=== PATIENT | male | born 1980 | race Native Hawaiian/Other Pacific Islander ===

== ENCOUNTER 2018-03-15 22:41 | Inpatient (IN) | payer MEDICAID ==
[~2018-03-15] VITALS: Ht 175.3 cm; Wt 111.8 kg
[~2018-03-15 22:41] MED LIST: ASPI-378 PO; ATOR20TA PO; CARV6.25 PO; CLOP75TA28 PO; ENAL5TAB85 PO; ESOM40CA39 PO; FURO40TA PO; LEVO750T2 PO; POTA20TA53 PO; SACC250C PO; SPIR25TA88 PO
[2018-03-16] VITALS (21 sets, daily range): BP systolic 121–147; BP diastolic 64–102
[2018-03-16 00:07] LABS: Basophils # (auto) 0.3 uL; Basophils % (auto) 2.7 % (0.0-2.0); Eosinophils # (auto) 0.1 uL; Eosinophils % (auto) 0.5 % (0.0-7.0); Hematocrit 49.8 % (41.0-53.0); Hemoglobin 16.2 g/dL (13.5-17.5); Lymphocytes # (auto) 2.2 uL; Lymphocytes % (auto) 19.4 % (10.0-50.0); Mean Corpuscular Hemoglobin 29.1 pg (28.0-32.0); Mean Corpuscular Hgb Conc. 32.6 g/dL (32.0-36.0); Mean Corpuscular Volume 89.3 fL (80.0-100.0); Monocytes # (auto) 0.6 uL; Monocytes % (auto) 5.1 % (0.0-12.0); Neutrophils # (auto) 8.2 uL; Neutrophils % (auto) 72.3 % (37.0-80.0); Nucleated Red Blood Cells % 0.1 %; Platelet Count (auto) 401 10^3/uL (140-450); Red Blood Cells 5.58 10^6/uL (4.5-5.90); Red Cell Distribution Width 17.2 % (11.8-14.3); White Blood Cell 11.4 10^3/uL (4.4-10.8)
[2018-03-16 00:29] LABS: Albumin 2.6 g/dL (3.4-5.0); BUN/Creatinine Ratio 9.3; Calcium 8.4 mg/dL (8.5-10.1); Potassium 4.8 mmol/L (3.5-5.1)
[2018-03-16 00:45] LABS: Bilirubin, Total 1.1 mg/dL (0.2-1.0); Total Protein 7.7 g/dL (6.4-8.2)
[2018-03-16] MEDS ORDERED: ENOXAPARIN SOD 100 MG/1 ML SYRINGE SC ONE (01:15)
[2018-03-16] MEDS ORDERED: ASPirin 81 mg TAB PO ONE (01:15)
[2018-03-16] MEDS ORDERED: NITROGLYCERIN 0.4MG/HR TOPICAL PATCH TD ONE (01:15)
[2018-03-16] MEDS ORDERED: ENALAPRILAT 1.25 MG/ML-1ML VIAL IV ONE (01:15)
[2018-03-16] MEDS ORDERED: FUROSEMIDE 40 MG/4 ML VIAL IV ONE ×2 (01:45)
[2018-03-16] MEDS ORDERED: NITROGLYCERIN 50MG/250ML 250 ML IV ONE ×2 (01:45)
[2018-03-16 01:49] LABS: INR 1.26 (0.9-1.15); Partial Thromboplastin Time 29.7 sec (22.64-33.71); Prothrombin Time 13.8 sec (9.37-12.3)
[2018-03-16 02:26] LABS: Urine Bacteria NONE SEEN /hpf (None Seen); Urine Blood Negative /uL (Negative); Urine Hyaline Cast FEW /lpf (0 - 2); Urine Mucus FEW (None Seen); Urine Specific Gravity 1.006 (1.001-1.035); Urine WBC 1 /hpf (0 - 3)
[2018-03-16] MEDS ORDERED: HYDROcodone-ACET 5/325MG TAB PO PRN (05:30)
[2018-03-16] MEDS ORDERED: ONDANSETRON HCL 4 MG/2 ML VIAL IV PRN (05:30)
[2018-03-16] MEDS ORDERED: ACETAMINOPHEN 325 MG TAB PO PRN (05:30)
[2018-03-16] MEDS ORDERED: NITROGLYCERIN 0.4 MG SL TAB SL PRN (05:30)
[2018-03-16] MEDS ORDERED: ATORVASTATIN 20 MG TAB PO ONE (05:30)
[2018-03-16] MEDS ORDERED: MORPHINE SULFATE 4 MG/ML SYR/VIAL IV PRN (05:30)
[2018-03-16] MEDS ORDERED: TEMAZEPAM 15 MG CAP PO PRN (05:30)
[2018-03-16] MEDS: FUROSEMIDE 40 MG/4 ML VIAL IV SCH ×2 (06:00→17:33)
[2018-03-16] MEDS ORDERED: ATORVASTATIN 20 MG TAB ONE (06:28)
[2018-03-16] MEDS ORDERED: cloNIDine HCL 0.1 MG TAB PO PRN (07:30)
[2018-03-16] MEDS ORDERED: CLOPIDOGREL BISULFATE 75 MG TAB PO SCH (10:00)
[2018-03-16] MEDS ORDERED: ASPirin 81 mg TAB PO SCH (10:00)
[2018-03-16] MEDS: FAMOTIDINE 20 MG TAB PO SCH ×2 (10:32→22:00)
[2018-03-16] MEDS: ENALAPRIL MALEATE 2.5 MG TAB PO SCH (10:32)
[2018-03-16] MEDS: CARVEDILOL 3.125 MG TAB PO SCH ×2 (10:33→22:00)
[2018-03-16] MEDS: ENOXAPARIN SOD 100 MG/1 ML SYRINGE SC SCH ×2 (10:34→22:00)
[2018-03-16] MEDS: ATORVASTATIN 20 MG TAB PO SCH (22:00)
[2018-03-16] MEDS ORDERED: ENOXAPARIN SOD 120 MG/0.8 ML SYRINGE SC ONE (22:22)
[2018-03-17] VITALS (14 sets, daily range): BP systolic 99–146; BP diastolic 63–101
[2018-03-17 03:48] LABS: Basophils # (auto) 0.1 uL; Eosinophils # (auto) 0.1 uL; Eosinophils % (auto) 0.6 % (0.0-7.0); Hematocrit 43.7 % (41.0-53.0); Hemoglobin 14.8 g/dL (13.5-17.5); Lymphocytes # (auto) 1.1 uL; Lymphocytes % (auto) 11.7 % (10.0-50.0); Mean Corpuscular Hemoglobin 29.8 pg (28.0-32.0); Mean Corpuscular Hgb Conc. 33.8 g/dL (32.0-36.0); Mean Corpuscular Volume 88.3 fL (80.0-100.0); Monocytes # (auto) 0.5 uL; Neutrophils # (auto) 7.3 uL; Neutrophils % (auto) 80.7 % (37.0-80.0); Nucleated Red Blood Cells % 0.2 %; Platelet Count (auto) 323 10^3/uL (140-450); Red Blood Cells 4.95 10^6/uL (4.5-5.90)
[2018-03-17 04:03] LABS: Calcium 8.1 mg/dL (8.5-10.1); Potassium 3.8 mmol/L (3.5-5.1)
[2018-03-17 04:07] LABS: Albumin 2.2 g/dL (3.4-5.0); BUN/Creatinine Ratio 13.4
[2018-03-17 04:10] LABS: Bilirubin, Total 1.2 mg/dL (0.2-1.0); Total Protein 6.5 g/dL (6.4-8.2)
[2018-03-17] MEDS: FUROSEMIDE 40 MG/4 ML VIAL IV SCH ×2 (06:00→17:51)
[2018-03-17] MEDS: FLORASTOR (S. BOULARDII) 250 MG CAP PO SCH (09:13)
[2018-03-17] MEDS: FAMOTIDINE 20 MG TAB PO SCH ×2 (09:13→21:29)
[2018-03-17] MEDS: POTASSIUM CHL 20 Meq TABLET PO SCH (09:14)
[2018-03-17] MEDS: ENALAPRIL MALEATE 2.5 MG TAB PO SCH (09:14)
[2018-03-17] MEDS: ASPirin-EC 81 mg tab PO SCH (09:14)
[2018-03-17] MEDS: CARVEDILOL 12.5 MG TAB PO SCH ×2 (09:14→21:28)
[2018-03-17] MEDS: CLOPIDOGREL BISULFATE 75 MG TAB PO SCH (09:14)
[2018-03-17] MEDS: SPIRONOLACTONE 25 MG TAB PO SCH (09:14)
[2018-03-17] MEDS: ENOXAPARIN SOD 100 MG/1 ML SYRINGE SC SCH ×2 (09:15→21:27)
[2018-03-17] MEDS ORDERED: ATORVASTATIN 20 MG TAB PO SCH (10:00)
[2018-03-17] MEDS ORDERED: FUROSEMIDE 40 MG TAB PO SCH (10:00)
[2018-03-17] MEDS: ATORVASTATIN 20 MG TAB PO SCH (21:27)
[2018-03-18 05:00] VITALS: BP 125/79
[2018-03-18 05:49] LABS: Basophils # (auto) 0.1 uL; Basophils % (auto) 0.8 % (0.0-2.0); Eosinophils # (auto) 0.1 uL; Eosinophils % (auto) 1.2 % (0.0-7.0); Hematocrit 46.2 % (41.0-53.0); Hemoglobin 15.4 g/dL (13.5-17.5); Lymphocytes # (auto) 1.8 uL; Lymphocytes % (auto) 26.5 % (10.0-50.0); Mean Corpuscular Hemoglobin 29.6 pg (28.0-32.0); Mean Corpuscular Hgb Conc. 33.3 g/dL (32.0-36.0); Monocytes # (auto) 0.6 uL; Neutrophils # (auto) 4.3 uL; Neutrophils % (auto) 63.5 % (37.0-80.0); Nucleated Red Blood Cells % 0.4 %; Platelet Count (auto) 347 10^3/uL (140-450); Red Blood Cells 5.19 10^6/uL (4.5-5.90); Red Cell Distribution Width 17.1 % (11.8-14.3); White Blood Cell 6.9 10^3/uL (4.4-10.8)
[2018-03-18 06:08] LABS: BUN/Creatinine Ratio 10.2; Calcium 7.9 mg/dL (8.5-10.1); Potassium 3.7 mmol/L (3.5-5.1)
[2018-03-18] MEDS: FUROSEMIDE 40 MG/4 ML VIAL IV SCH (06:58)
[2018-03-18 08:19] VITALS: BP 126/81
[2018-03-18] MEDS: FAMOTIDINE 20 MG TAB PO SCH (11:08)
[2018-03-18] MEDS: FLORASTOR (S. BOULARDII) 250 MG CAP PO SCH (11:08)
[2018-03-18] MEDS: POTASSIUM CHL 20 Meq TABLET PO SCH (11:18)
[2018-03-18] MEDS: CLOPIDOGREL BISULFATE 75 MG TAB PO SCH (11:18)
[2018-03-18] MEDS: ENALAPRIL MALEATE 2.5 MG TAB PO SCH (11:19)
[2018-03-18] MEDS: ASPirin-EC 81 mg tab PO SCH (11:20)
[2018-03-18] MEDS: SPIRONOLACTONE 25 MG TAB PO SCH (11:20)
[2018-03-18] MEDS: CARVEDILOL 12.5 MG TAB PO SCH (11:20)
[2018-03-18 11:54] VITALS: BP 120/84
== END 2018-03-18 16:05 | disposition home or self-care (01) | DRG 190 ==
LOC: EDBD 22:41 → ER 22:44 → TELE 22:45 → ICU WEST 03-16 14:22 → TELE-WESTW 03-17 15:21
PROVIDERS: ADMIT Nurse Practitioner; ATTEND Internal Medicine
DX: I21.4 Non-ST elevation (NSTEMI) myocardial infarction (principal); I50.43 Acute on chronic combined systolic (congestive) and diastolic (congestive) heart failure; E11.22 Type 2 diabetes mellitus with diabetic chronic kidney disease; I42.0 Dilated cardiomyopathy; N17.9 Acute kidney failure, unspecified; N18.3 Chronic kidney disease, stage 3 (moderate); E66.01 Morbid (severe) obesity due to excess calories; E44.1 Mild protein-calorie malnutrition; I11.0 Hypertensive heart disease with heart failure; I50.82 Biventricular heart failure; I13.0 Hypertensive heart and chronic kidney disease with heart failure and stage 1 through stage 4 chronic kidney disease, or unspecified chronic kidney disease; E78.5 Hyperlipidemia, unspecified; F15.10 Other stimulant abuse, uncomplicated; F17.210 Nicotine dependence, cigarettes, uncomplicated; I25.10 Atherosclerotic heart disease of native coronary artery without angina pectoris; I25.2 Old myocardial infarction; Z82.49 Family history of ischemic heart disease and other diseases of the circulatory system; Z91.14 Patient's other noncompliance with medication regimen; Z91.19 Patient's noncompliance with other medical treatment and regimen; Z68.36 Body mass index [BMI] 36.0-36.9, adult; Z79.899 Other long term (current) drug therapy; Z79.82 Long term (current) use of aspirin; Z71.6 Tobacco abuse counseling
CPT/HCPCS: 36415; 71045; 80048; 80053; 81001; 83735; 83880; 84484; 85025; 85610; 85730; 87081; 93005; 93306; 96365; 96372; 96375; 99291

== ENCOUNTER 2019-01-29 20:50 | Emergency (ER) | payer MEDICAID ==
[~2019-01-29] VITALS: Ht 170.2 cm; Wt 106.6 kg
[~2019-01-29 20:50] MED LIST changes: -ESOM40CA39 PO; -LEVO750T2 PO; -SACC250C PO
[2019-01-29 21:01] VITALS: BP 149/96
[2019-01-29] MEDS ORDERED: IPRATROPIUM BROM 0.5 MG/2.5ML INH SOL NEB ONE (21:30)
[2019-01-29] MEDS ORDERED: ALBUTEROL SULF 2.5 MG/0.5ML(0.5%) NEB SOLN NEB ONE (21:30)
== END 2019-01-30 00:54 | disposition left against medical advice (07) ==
LOC: ER 20:53
DX: R06.02 Shortness of breath (principal); M79.10 Myalgia, unspecified site; Z53.21 Procedure and treatment not carried out due to patient leaving prior to being seen by health care provider
CPT/HCPCS: 71045; 93005; 94640; J7611; J7644